=== PATIENT | male | born 1990 | race Caucasian/White ===

== ENCOUNTER 2017-10-26 13:24 | Emergency (ER) | payer OTHER ==
[~2017-10-26] VITALS: Ht 180.3 cm; Wt 73.6 kg
[2017-10-26 13:28] VITALS: BP 139/85
[2017-10-26] MEDS ORDERED: KEFLEX500 MG PO (14:38)
[2017-10-26] MEDS ORDERED: BACTRIM,SEPT1 TABLET PO (14:38)
[2017-10-26] MEDS ORDERED: ATARAX,VISTARIL50 MG PO (14:38)
== END 2017-10-26 14:46 | disposition home or self-care (01) ==
LOC: EME 13:24
DX: S40.862A Insect bite (nonvenomous) of left upper arm, initial encounter (principal); L08.9 Local infection of the skin and subcutaneous tissue, unspecified; W57.XXXA Bitten or stung by nonvenomous insect and other nonvenomous arthropods, initial encounter
CPT/HCPCS: 99281; 99283

== ENCOUNTER 2017-11-13 14:17 | Emergency (ER) | payer OTHER ==
[~2017-11-13] VITALS: Ht 180.3 cm; Wt 70.9 kg
[~2017-11-13 14:17] MED LIST: ATARAX,VISTARIL50 MG PO; BACTRIM,SEPT1 TABLET PO; KEFLEX500 MG PO
[2017-11-13] MEDS ORDERED: BACTROBAN OINTM22 GM TP (15:29)
[2017-11-13] MEDS ORDERED: KEFLEX500 MG PO (15:29)
[2017-11-13] MEDS ORDERED: BACTRIM,SEPT1 TABLET PO (15:29)
[2017-11-13 15:45] VITALS: BP 147/84
== END 2017-11-13 15:45 | disposition home or self-care (01) ==
LOC: EME 14:17
DX: L03.114 Cellulitis of left upper limb (principal); F17.200 Nicotine dependence, unspecified, uncomplicated
CPT/HCPCS: 99281; 99283